=== PATIENT | female | born 2005 | race Caucasian/White ===

== ENCOUNTER 2024-03-29 13:10 | Emergency (ER) | payer OTHER ==
[~2024-03-29] VITALS: Ht 160 cm; Wt 61.2 kg
[2024-03-29] MEDS ORDERED: ONDANSETRON 4 MG/2 ML VIAL ONE (13:29)
[2024-03-29 13:33] LABS: BASOPHILS # (AUTO) 0.2 K/UL (0.0-0.2); BASOPHILS % (AUTO) 2.4 % (0.0-2.0); EOSINOPHILS % (AUTO) 0.3 % (0.0-7.0); HEMATOCRIT 41.9 % (31.2-41.9); HEMOGLOBIN 14.2 g/dL (10.9-14.3); LYMPHOCYTES # (AUTO) 1.7 K/uL (0.8-4.8); LYMPHOCYTES % (AUTO) 23.8 % (20.5-74.5); MEAN CORPUSCULAR HEMOGLOBIN 28.8 uug (24.7-32.8); MEAN CORPUSCULAR HGB CONC 34 g/dL (32.3-35.6); MONOCYTES # (AUTO) 0.3 K/uL (0.1-1.30); NEUTROPHILS # (AUTO) 4.8 K/uL (1.8-8.9); NEUTROPHILS % (AUTO) 68.5 % (31.5-64.5); PLATELET COUNT (AUTO) 249 K/uL (179-408); RED BLOOD CELL COUNT(AUTO) 4.93 MIL/uL (3.63-4.92); RED CELL DISTRIBUTION WIDTH 13.8 % (12.3-17.7)
[2024-03-29 13:39] LABS: DIFFERENTIAL COMMENT 1
[2024-03-29] MEDS: ONDANSETRON 4 MG/2 ML VIAL IV ONE (13:43)
[2024-03-29] MEDS: IV NORMAL SALINE 1000 ML BAG IV ONE (13:43)
[2024-03-29 13:57] LABS: ALBUMIN 3.6 g/dL (3.4-5.0); BILIRUBIN,DIRECT 0.1 mg/dL (0.0-0.2); BILIRUBIN,TOTAL 0.5 mg/dL (0.2-1.0); CALCIUM 9.9 mg/dL (8.5-10.1); CREATININE 0.6 mg/dL (0.6-1.3); POTASSIUM 3.5 mmol/L (3.5-5.1); TOTAL PROTEIN, SERUM 8.3 g/dL (6.4-8.2)
[2024-03-29 13:58] LABS: *BILIRUBIN,URIN 1+ (NEGATIVE); *BLOOD, URINE NEGATIVE (NEGATIVE); *CLARITY,URINE CLEAR (CLEAR); *COLOR,URINE DARK YELLOW (YELLOW); *KETONES,URINE 4+ (NEGATIVE); *PROTEIN,URINE 1+ (NEGATIVE); *UROBILINOGEN,URINE 0.2 E.U./dl (NORMAL); LEUKOCYTE ESTERASE ,URINE TRACE (NEGATIVE); NITRITE, URINE NEGATIVE (NEGATIVE); UGLUCOSE NEGATIVE (NEGATIVE)
[2024-03-29 14:08] LABS: BACTERIA,URINE FEW /HPF (NONE SEEN); SQUAMOUS EPITHELIAL CELL,UR FEW /HPF (NONE SEEN)
[2024-03-29] MEDS ORDERED: [UNRECOGNIZED DRUG - CODE] PO (14:36)
[2024-03-29] MEDS ORDERED: ONDA4TAB5 PO (14:54)
[2024-03-29] MEDS ORDERED: NITR100C11 PO (14:54)
[2024-03-29 15:22] VITALS: BP 128/78; TEMP 98; O2SAT 97
== END 2024-03-29 15:23 | disposition home or self-care (01) ==
LOC: ER 13:10
DX: O20.0 Threatened abortion (principal); O21.0 Mild hyperemesis gravidarum; O23.41 Unspecified infection of urinary tract in pregnancy, first trimester; N39.0 Urinary tract infection, site not specified; R10.2 Pelvic and perineal pain; Z3A.01 Less than 8 weeks gestation of pregnancy; Z79.899 Other long term (current) drug therapy
CPT/HCPCS: 99285; 96374; 76856; 96361; 80076; 80048; 81001; 85025; 85730; 84702; 36415; 87086; J2405; J7040; A4606; A4663

== ENCOUNTER 2024-03-31 12:17 | Emergency (ER) | payer OTHER ==
[~2024-03-31] VITALS: Ht 160 cm; Wt 59.0 kg
[~2024-03-31 12:17] MED LIST: NITR100C11 PO; ONDA4TAB5 PO; [UNRECOGNIZED DRUG - CODE] PO
[2024-03-31] MEDS ORDERED: PROC-11 PO (14:18)
[2024-03-31] MEDS ORDERED: ONDA4TAB5 PO (14:18)
[2024-03-31 14:31] VITALS: BP 119/77; O2SAT 99
== END 2024-03-31 14:31 | disposition home or self-care (01) ==
LOC: ER 12:17
DX: O21.0 Mild hyperemesis gravidarum (principal); R10.2 Pelvic and perineal pain; Z79.899 Other long term (current) drug therapy; Z3A.01 Less than 8 weeks gestation of pregnancy
CPT/HCPCS: 36415; A4606; A4663